=== PATIENT | female | born 1955 | race Caucasian/White ===

== ENCOUNTER → 2018-07-13 | Outpatient (CLI) | payer BC ==
[~2018-07-13] MED LIST: ASC500 PO; BUPR300T55 PO; CALC500T42 PO; FISH OIL1 CAP PO; GLUC500C29 PO; LEV125 PO; MAGN200T8 PO; MULT1CAP41 PO; NAPR-1043 PO; POTA75TA2 PO; VITA1CAP55 PO; [UNRECOGNIZED DRUG - CODE] PO
--- NOTE | 2018-07-13 13:41 | RADIOLOGY IMAGING REPORT ---
FACILITY: [facility] PATIENT NAME: Sonja Richards : 1955 MR: [id number] V: [id number] EXAM DATE: ORDERING PHYSICIAN: SAKINA CARBAJAL TECHNOLOGIST: Location: [facility] Patient: Sonja Richards : 1955 Visit/Account:[id number] Date of Sevice: 07/13/2018 DEXA Scan Clinical history: Postmenopausal. Comparison: DEXA scan from 09/29/2014. LUMBAR SPINE: The bone mineral density (BMD) measured from L1-L4 correlates with a Z-score of 1.8 and a T-score of 0.6 which is Normal as defined by the World Health Organization. The corresponding risk of fracture in the lumbar spine is Not increased compared with a young adult reference population. This value rosario s decreased by 1.5 % since the prior study. More than 5% change is considered significant. HIP: Bone mineral density (BMD) measured in the LEFT total hip region correlates with a Z-score -0.1 and a T-score of -1 which is normal as defined by the World Health Organization. The corresponding risk of fracture in the hip is 2 dallin es increased compared to a young adult reference population. This value has increased by 1.5 % since the prior study. More than 5% change is considered significant. T score left femoral neck -1.8 Bone mineral density (BMD) measured in the Femoral Neck region measures 0.789 g/cm?. IMPRESSION: 1. Lumbar spine: Normal. There has been 1.5% decrease in the bone mineral density since the previou s exam. 2. Left Total Hip: Normal. There has been 1.5% increase in the bone mineral density since the previ ous exam. 3. Femoral Neck: Bone Mineral Density is 0.789 g/cm? The next DEXA scan of this patient should include the following sites: L1-L4 and the left hip. FRAX? WHO Fracture Risk Assessment Tool link: <http://www.shef.ac.uk/FRAX/tool.jsp?locationValue=9> PLEASE NOTE: 1) The World Health Organization defines low BMD as follows: T-score Normal > -1 Osteopenia < -1 and > -2.5 Osteoporosis < -2.5 without fractures Established osteoporosis < -2.5 with fractures 2) In general, you may wish to consider: Diagnosis Treatment Follow-up DEXA Normal BMD Prevention 2-3 years Osteopenia Prevention/therapy 1-2 years Osteoporosis Therapy Yearly 3) Fracture risk estimated from the T-score is more accurate for vertebral fractures (often spontane ous) than for hip fractures. Report Dictated By: Erlinda Matias MD at 07/13/2018 1:33 PM Report E-Signed By: Erlinda Matias MD at 07/13/2018 1:37 PM WSN:[email or web address]
--- NOTE | 2018-07-14 10:10 | RADIOLOGY IMAGING REPORT ---
FACILITY: [facility] PATIENT NAME: YAHAIRA DUNCAN : [id number] MR: [id number] V: [id number] EXAM DATE: [id number] ORDERING PHYSICIAN: SAKINA CARBAJAL TECHNOLOGIST: April Rosenbaum PROCEDURE:BILATERAL DIGITAL SCREENING MAMMOGRAM WITH CAD ASSISTED INTERPRETATION & 3D TOMOSYNTHESIS COMPARISON:Prior mammograms 06/25/17, 05/02/16, 04/09/16, 09/29/14, 09/24/13, 05/14/12. INDICATIONS:SCREENING FINDINGS: Moderately heterogeneous fibroglandular tissue is seen throughout the breasts. The parenchymal pattern has remained stable allowing for difference in mammographic technique & patient positioning. There is no evidence of malignant appearing mass, malignant appearing calcifications or other secondary sign of malignancy in either breast. DIAGNOSTIC CATEGORY 1--NEGATIVE. RECOMMENDATIONS: ROUTINE MAMMOGRAM AND CLINICAL EVALUATION. IMPRESSION: BIRADS 1: Negative. No significant abnormality is seen. Dictated by: Erlinda Matias M.D. on 07/13/2018 at 17:32 Transcribed by: DEVI on 07/14/2018 at 7:52 Approved by: Erlinda Matias M.D. on 07/14/2018 at 10:08 [facility]
== END ==
LOC: MAMO 03:06
PROVIDERS: ATTEND Nurse Practitioner Psychiatric/Mental Health
DX: Z12.31 Encounter for screening mammogram for malignant neoplasm of breast (principal); Z13.820 Encounter for screening for osteoporosis
CPT/HCPCS: 77063; 77067; 77080